=== PATIENT | male | born 1995 | race Caucasian/White ===

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

== ENCOUNTER 2017-01-25 12:11 | Emergency (ER) | payer OTHER ==
[~2017-01-25] VITALS: Ht 190.5 cm; Wt 73.7 kg
[2017-01-25 12:22] VITALS: Ht 190.5 cm; Wt 73.7 kg
[2017-01-25] MEDS ORDERED: SODIUM CHLORIDE 0.9% 1000ML 1,000 ML IV STA ×2 (13:13)
[2017-01-25 13:27] LABS: BASO % 0.4 %; BASO ABS # 0.02 K/uL (0-0.2); COMPLETE YES; EOS % 2.9 %; HEMATOCRIT 43.4 % (42-52); LYMPH % 41.6 %; LYMPH ABS # 2.28 K/uL (1.2-3.4); MEAN CELL VOLUME 84.1 fL (80-100); MEAN CORPUSCULAR HGB CONC 36.9 g/dl (32-36); MEAN PLATELET VOLUME 9.5 fL (7.4-10.4); MONO % 8.9 %; NEUT % 46.2 %; PLATELET COUNT 217 K/uL (130-400); RED BLOOD COUNT 5.16 M/uL (4.7-6.1); WHITE BLOOD COUNT 5.48 K/uL (4.8-10.8)
[2017-01-25 13:44] LABS: BUN/CREATININE RATIO 15.5 (10-20); CALCIUM 9.2 mg/dl (8.5-10.1); CREATININE 0.92 mg/dl (0.60-1.40); POTASSIUM 4.1 mmol/L (3.5-5.1)
[2017-01-25 13:51] LABS: URINE APPEARANCE CLEAR (CLEAR); URINE BILIRUBIN NEG (NEG); URINE COLOR YELLOW; URINE NITRITE NEG (NEG); URINE PH 5.5 (4.5-7.5); URINE SPECIFIC GRAVITY 1.023 (1.000-1.030); UROBILINOGEN NEG (NEG)
[2017-01-25 13:56] LABS: MANUAL MICROSCOPIC REQUIRED? NO; REVIEW REQ? NO
[2017-01-25] MEDS ORDERED: OPTIRAY 320 IV PRN (14:30)
--- NOTE | 2017-01-25 15:03 | DIAGNOSTIC IMAGING REPORT ---
CT ABD/PELVIS IV CONTRAST ONLY CLINICAL HISTORY: Right lower quadrant abdominal pain COMPARISON STUDY: 10/26/2015 TECHNIQUE: Following the IV administration of 94 mL of Optiray-320, CT scan of the abdomen and pelvis was performed from the lung bases to the proximal femurs. Images are reviewed in the axial, sagittal, and coronal planes. IV contrast was administered without complication. A dose lowering technique was utilized adhering to the principles of ALARA. CT DOSE: 255.92 mGy.cm FINDINGS: Lower chest: The heart is normal in size and configuration, without pericardial effusion. The lung bases and pleural spaces are clear. Liver: There is mild periportal edema. This is a nonspecific finding often seen in aggressive hydration. Gallbladder: Unremarkable. Spleen: Normal in size and attenuation. Pancreas: Unremarkable. Adrenal glands: Unremarkable. Kidneys: There is symmetric renal cortical enhancement. The kidneys are normal in size without hydronephrosis. Bowel: There are no transition zones to indicate bowel obstruction. There is no CT evidence of acute appendicitis given the limitations of this study performed without oral contrast. There is no acute diverticulitis. There is mild fecal retention Peritoneum: There is trace free pelvic fluid. There is no free intraperitoneal air. Vasculature: The abdominal aorta is normal in course and caliber. Adenopathy: None. Pelvic viscera: The bladder, and pelvic viscera are unremarkable. Skeletal structures: No destructive osseous lesions are seen. IMPRESSION: 1. Mild periportal edema, a finding possibly secondary to intravenous hydration 2. No evidence of bowel obstruction. No evidence of free air 3. No evidence of acute appendicitis, given the limitations of a study performed without oral contrast Electronically signed by: Rashid Zayas M.D. 01/25/2017 3:01 PM Dictated Date/Time: 01/25/2017 2:57 PM
--- NOTE | 2017-01-25 15:08 | EMERGENCY ROOM VISIT NOTE ---
History First contact with patient: 12:53 Chief Complaint: ABDOMINAL PAIN Stated Complaint: PAIN IN LOWER RIGHT ABDOMEN Nursing Triage Summary: patient c/o lower right quadrant abdominal pain, states "I don't know if its appendicitis or not, I've been here a few times for it but I can't seem to shake it so I'm back." History of Present Illness Patient is an otherwise healthy 21-year-old white male who presents to emergency department for evaluation of right lower quadrant abdominal pain. His symptoms started yesterday as a cramp in the right side of his abdomen. The pain steadily escalated throughout the evening. He states that he "tried to sleep it off." The pain lessened slightly, then worsened again this morning. He presently rates the pain a 7/10. He states it is located in the right lower quadrant and does not radiate. It is a constant, deep, aching pain. He felt some chills last night, but did not have a fever. He did not take any medication for his symptoms. He denies any nausea, vomiting, diarrhea , urinary symptoms or stool changes. He does not have a history of any underlying GI issues or stomach problems. He reports that he has been to the emergency department for right lower quadrant abdominal pain previously. He has never had any abdominal surgeries. Review of Systems Review of systems as per HPI. All other systems reviewed were negative. 10 systems reviewed. Past Medical/Surgical History Medical Problems: (1) Abdominal pain (2) No Known Active Medical Problems (3) Vomiting Electronic medical records are reviewed and summarized as above/below. See Problem List. Social History Smoking Status: Never Smoker Alcohol Use: none Drug Use: none Marital Status: single Housing Status: lives with family Occupation Status: [employer] student Current/Historical Medications No Active Prescriptions or Reported Meds Physical Exam Vital Signs Date Time Temp Pulse Resp B/P (MAP) Pulse Ox O2 Delivery O2 Flow Rate FiO2 01/25/17 15:29 36.9 44 18 125/64 99 01/25/17 15:19 44 18 125/64 99 Room Air 01/25/17 14:34 45 18 115/61 100 Room Air 01/25/17 12:22 36.9 42 20 110/69 96 Room Air Physical Exam CONSTITUTIONAL: Patient is a pleasant, well-appearing 21-year-old white male who is awake and alert and in no acute distress. EYES: Pupils equal, round, reactive to light and accommodation. EOMs intact without nystagmus. Sclera are anicteric. ENT: Tympanic membranes intact, with normal landmarks. External canals are clear. Oral and nasopharynx are clear. Mucous membranes are moist, no lesions , tongue and gums appear normal. NECK: Supple without lymphadenopathy. No thyromegaly. No meningeal signs. Full active range of motion without discomfort. CARDIOVASCULAR: Regular rate and rhythm, with normal S1 and S2, no murmur or gallop or rub is heard. No carotid bruits auscultated. No JVD. Peripheral pulses easily palpable. RESPIRATORY: Breath sounds equal and clear to auscultation without wheezes, rales, or rhonchi heard. Full and equal chest expansion without accessory muscle use or retractions. ABDOMEN: Bowel sounds are present. Abdomen is soft, scaphoid, nondistended, nontender to percussion throughout. He has tenderness to palpation in the right lower quadrant over McBurney's point. No guarding, rebound or rigidity. No hernias appreciated. INTEGUMENTARY: No lesions or rash, normal skin turgor. LYMPH: No lymphadenopathy. Medical Decision & Procedures ER Provider Diagnostic Interpretation: CT ABD/PELVIS IV CONTRAST ONLY CLINICAL HISTORY: Right lower quadrant abdominal pain COMPARISON STUDY: 10/26/2015 TECHNIQUE: Following the IV administration of 94 mL of Optiray-320, CT scan of the abdomen and pelvis was performed from the lung bases to the proximal femurs. Images are reviewed in the axial, sagittal, and coronal planes. IV contrast was administered without complication. A dose lowering technique was utilized adhering to the principles of ALARA. CT DOSE: 255.92 mGy.cm FINDINGS: Lower chest: The heart is normal in size and configuration, without pericardial effusion. The lung bases and pleural spaces are clear. Liver: There is mild periportal edema. This is a nonspecific finding often seen in aggressive hydration. Gallbladder: Unremarkable. Spleen: Normal in size and attenuation. Pancreas: Unremarkable. Adrenal glands: Unremarkable. Kidneys: There is symmetric renal cortical enhancement. The kidneys are normal in size without hydronephrosis. Bowel: There are no transition zones to indicate bowel obstruction. There is no CT evidence of acute appendicitis given the limitations of this study performed without oral contrast. There is no acute diverticulitis. There is mild fecal retention Peritoneum: There is trace free pelvic fluid. There is no free intraperitoneal air. Vasculature: The abdominal aorta is normal in course and caliber. Adenopathy: None. Pelvic viscera: The bladder, and pelvic viscera are unremarkable. Skeletal structures: No destructive osseous lesions are seen. IMPRESSION: 1. Mild periportal edema, a finding possibly secondary to intravenous hydration 2. No evidence of bowel obstruction. No evidence of free air 3. No evidence of acute appendicitis, given the limitations of a study performed without oral contrast Laboratory Results 01/25/17 12:50 Red Blood Count 5.16, Mean Corpuscular Volume 84.1, Mean Corpuscular Hemoglobin 31.0, Mean Corpuscular Hemoglobin Concent 36.9, Mean Platelet Volume 9.5, Neutrophils (%) (Auto) 46.2, Lymphocytes (%) (Auto) 41.6, Monocytes (%) (Auto) 8.9, Eosinophils (%) (Auto) 2.9, Basophils (%) (Auto) 0.4, Neutrophils # (Auto) 2.53, Lymphocytes # (Auto) 2.28, Monocytes # (Auto) 0.49, Eosinophils # (Auto) 0.16, Basophils # (Auto) 0.02 01/25/17 12:50 Test 01/25/17 12:50 White Blood Count 5.48 K/uL (4.8-10.8) Red Blood Count 5.16 M/uL (4.7-6.1) Hemoglobin 16.0 g/dL (14.0-18.0) Hematocrit 43.4 % (42-52) Mean Corpuscular Volume 84.1 fL (80-100) Mean Corpuscular Hemoglobin 31.0 pg (25-34) Mean Corpuscular Hemoglobin Concent 36.9 g/dl (32-36) Platelet Count 217 K/uL (130-400) Mean Platelet Volume 9.5 fL (7.4-10.4) Neutrophils (%) (Auto) 46.2 % Lymphocytes (%) (Auto) 41.6 % Monocytes (%) (Auto) 8.9 % Eosinophils (%) (Auto) 2.9 % Basophils (%) (Auto) 0.4 % Neutrophils # (Auto) 2.53 K/uL (1.4-6.5) Lymphocytes # (Auto) 2.28 K/uL (1.2-3.4) Monocytes # (Auto) 0.49 K/uL (0.11-0.59) Eosinophils # (Auto) 0.16 K/uL (0-0.5) Basophils # (Auto) 0.02 K/uL (0-0.2) RDW Standard Deviation 37.7 fL (36.4-46.3) RDW Coefficient of Variation 12.3 % (11.5-14.5) Immature Granulocyte % (Auto) 0.0 % Immature Granulocyte # (Auto) 0.00 K/uL (0.00-0.02) Urine Color YELLOW Urine Appearance CLEAR (CLEAR) Urine pH 5.5 (4.5-7.5) Urine Specific Thorp 1.023 (1.000-1.030) Urine Protein NEG (NEG) Urine Glucose (UA) NEG (NEG) Urine Ketones NEG (NEG) Urine Occult Blood NEG (NEG) Urine Nitrite NEG (NEG) Urine Bilirubin NEG (NEG) Urine Urobilinogen NEG (NEG) Urine Leukocyte Esterase NEG (NEG) Anion Gap 4.0 mmol/L (3-11) Est Creatinine Clear Calc Drug Dose 134.6 ml/min Estimated GFR () 139.3 Estimated GFR (Non- 120.2 BUN/Creatinine Ratio 15.5 (10-20) Calcium Level 9.2 mg/dl (8.5-10.1) Medications Administered Medications (Trade) Dose Ordered Sig/Regulo Route Start Time Stop Time Status Last Admin Dose Admin Sodium Chloride 1,000 ml @ 999 mls/hr Q1H1M STAT IV 01/25/17 13:13 01/25/17 14:13 DC 01/25/17 13:13 999 MLS/HR ED Course The patient was seen and assessed as above. His old records were reviewed. IV lock was initiated and he was hydrated with normal saline solution. CBC, BMP and urinalysis were collected. CT scan of the abdomen and pelvis with IV contrast was performed. Laboratory studies noted a normal white count. H&H is normal. Electrolytes and renal functions are within normal limits. Urinalysis completely clear. CT scan of the abdomen and pelvis with IV contrast noted no evidence for acute appendicitis, no evidence for bowel obstruction or free air. All laboratory and diagnostic imaging studies were reviewed with the patient. Conservative care measures were discussed. Differential diagnoses include gastroenteritis, pancreatitis, appendicitis, mesenteric adenitis, pyelonephritis , urinary tract infection, renal colic, diverticulitis, shingles, bowel obstruction, intussusception, hernia, inflammatory bowel disease, musculoskeletal pain, among others. The patient was reassured. He was advised to follow-up with his primary care provider for further care and evaluation if his symptoms are not improving. He was also educated on the worrisome signs or symptoms for which she should return to the emergency department. He is discharged home in good condition accompanied by his brother. Medical Decision See ED Course. Medication Reconcilliation Current Medication List: was personally reviewed by me Blood Pressure Screening Patient's blood pressure: Normal blood pressure Impression Primary Impression: Right lower quadrant abdominal pain Departure Information Prescriptions No Active Prescriptions or Reported Meds Referrals Michael Castellano M.D. (PCP) Patient Instructions My [facility] Additional Instructions Ibuprofen(Motrin, Advil) may be used for fever or pain. Use 600mg every six hours as needed. Take with food. Avoid using more than 2400mg in a 24 hour period. Do not use 2400mg per day for more than three consecutive days without physician direction. Prolonged inappropriate use can lead to stomach upset or ulcers. This is available over the counter and typically comes in 200mg tablets. (AND/OR) Acetaminophen(Tylenol) may be used for fever or pain. Use 1000mg every eight hours as needed. Avoid using more than 3000mg in a 24 hour period. This is available over the counter. Rest and drink plenty of fluids as tolerated. Slow sips of water or sports drinks are recommended instead of large amounts all at once. Continue current medications. Once your stomach is settled start with a clear liquid diet (jello, soup broth, etc.) and then advance as tolerated. You should avoid full, heavy meals for about 24 hrs from the time your symptoms resolved. Return to the ER immediately for worsening or persistent abdominal pain, vomiting, fevers, chest pains, difficulty breathing, black or bloody stools, worsening of your condition, or as needed. Follow up with your primary physician in 1-2 days for a recheck of your current condition.
[2017-01-25 15:29] VITALS: BP 125/64; PULSE 44; TEMP 36.9; O2SAT 99
== END 2017-01-25 15:31 | disposition home or self-care (01) ==
LOC: C.EDB 12:15 → C.EDC 15:31
DX: R10.31 Right lower quadrant pain (principal)

== ENCOUNTER → 2017-02-12 | Outpatient (CLI) | payer OTHER ==
--- NOTE | 2017-02-12 09:08 | DIAGNOSTIC IMAGING REPORT ---
ABDOMINAL ULTRASOUND, RIGHT UPPER QUADRANT HISTORY: Generalized abdominal pain.. COMPARISON: Abdomen and pelvis CT 01/25/2017. FINDINGS: Pancreas: The pancreas demonstrates a normal echotexture. Liver: Unremarkable. Gallbladder: No gallbladder wall thickening. No gallstones. CBD: 3 mm. Right kidney: No hydronephrosis. IMPRESSION: No significant abnormality identified within the right upper quadrant. Electronically signed by: Vidal Tee M.D. 02/12/2017 9:06 AM Dictated Date/Time: 02/12/2017 9:05 AM
[2017-02-12 14:16] LABS: LYME DISEASE AB IGG NEG (NEG); LYME DISEASE AB IGM NEG (NEG)
[2017-02-14 12:30] LABS: GLIADIN DEAMIDATED IgA AB 5 UNITS (<20); GLIADIN DEAMIDATED IgG AB 8 UNITS (<20); RETICULIN IgA AB Negative (Negative)
== END | disposition home or self-care (01) ==
LOC: C.ULTRBC 08:15
PROVIDERS: ATTEND Physician Assistant Medical
DX: R10.9 Unspecified abdominal pain (principal)